=== PATIENT | female | born 1985 | race Caucasian/White ===

== ENCOUNTER → 2017-06-27 14:59 | Outpatient (CLI) | payer OTHER, SELFPAY ==
[2017-06-27 15:59] LABS: Absolute Lymphocyte Count 2.19 X10^3/ul (0.83-4.51); Absolute Neutrophil Count 5.6 X10^3/uL (2.0-7.7); Basophil# 0.03 X10^3/uL; Basophil% 0.3 % (0-1); Eosinophils% 1.2 % (0-5); Hematocrit 38.3 % (37-47); Hemoglobin 12.9 g/dl (12.0-15.0); Lymphocyte # 2.19 X10^3/ul (4.0); Lymphocyte % 25.2 % (19-41); Mean Corp Hgb Conc 33.7 g/gl (32-36); Mean Corpuscular Hgb 29.7 pg (27.0-32.0); Mean Corpuscular Volume 88.2 fL (81-99); Mean Platelet Vol. 9.1 fl (6.2-12.0); Monocyte% 9.2 % (0-10); Neutrophil # 5.55 X10^3/uL (2.7-7.7); POSITIVE COUNT NO; POSITIVE DIFFERENTIAL NO; POSITIVE MORPHOLOGY NO; Platelet Count 436 K/mm3 (150-450); RBC Distribution Width CV 12.3 % (11.6-14.6); Red Blood Count 4.34 M/mm3 (4.2-5.4); White Blood Count 8.7 K/mm3 (4.4-11.0)
[2017-06-27 16:21] LABS: Color, Urine Yellow (Yellow); Glucose, Dipstick Normal (Normal); Ketone-Dipstick Negative (Negative); Leukocyte Esterase-Dipstick Negative /ul (Negative); Nitrite-Dipstick Negative (Negative); Occult Blood-Urine Negative /ul (Negative); Protein-Dipstick Negative (Negative); Urine Bilirubin Dipstick Negative (Negative); Urine Clarity Clear (Clear); Urine Urobilinogen Normal (Normal); Urine pH 6.5 (5.0 - 8.0)
[2017-06-27 16:37] LABS: Thyroid Stim Hormone (TSH) 1.94 uIU/mL (0.358-3.74)
[2017-06-27 18:43] LABS: Chlamydia Trachomatis by PCR Negative (Negative); Neisserai gonorrhoeae by PCR Negative (Negative); Probe Check PASS; Sample Adequacy Control PASS; Specimen Processing Control PASS
[2017-06-28 01:10] LABS: Prenatal RPR NONREACTIVE (NONREACTIVE)
[2017-06-28 10:36] LABS: HIV - WCH Non-Reactive (Nonreactive); Rubella IgG > 500.0 IU/mL
[2017-06-29 11:13] LABS: HEPATITIS B SURFACE AG Negative (Negative); Hep C Antibodies <0.1 s/co ratio (0.0-0.9)
[2017-07-03 14:38] LABS: HPV Reflexed? NOT INDICATED
== END ==
PROVIDERS: Visit Provider Obstetrics & Gynecology
DX: Z12.4 Encounter for screening for malignant neoplasm of cervix (principal); Z11.3 Encounter for screening for infections with a predominantly sexual mode of transmission; Z32.01 Encounter for pregnancy test, result positive
CPT/HCPCS: 36415; 81002; 84443; 85025; 86703; 86762; 86803; 87340; 87491; 87591; 88175; G0145

== ENCOUNTER → 2017-11-13 11:13 | Outpatient (CLI) | payer OTHER, SELFPAY ==
[2017-11-13 13:42] LABS: Glucose Challenge Gest 1H 50g 99 mg/dL (70-140); Hematocrit 33.4 % (37-47); Hemoglobin 10.7 g/dl (12.0-15.0); Mean Corpuscular Hgb 29.1 pg (27.0-32.0); Mean Corpuscular Volume 90.8 fL (81-99); Mean Platelet Vol. 9.3 fl (6.2-12.0); Platelet Count 369 K/mm3 (150-450); RBC Distribution Width CV 12.6 % (11.6-14.6); RBC Distribution Width SD 41.5 fl (35.1-43.9); Red Blood Count 3.68 M/mm3 (4.2-5.4); White Blood Count 9.1 K/mm3 (4.4-11.0)
[2017-11-13 13:51] LABS: Scan Indicated on CBC? Y/N NO
== END ==
PROVIDERS: Visit Provider Obstetrics & Gynecology
DX: Z34.82 Encounter for supervision of other normal pregnancy, second trimester (principal)
CPT/HCPCS: 82950; 85027

== ENCOUNTER → 2018-01-15 09:32 | Outpatient (CLI) | payer OTHER, SELFPAY ==
[2018-01-15 12:14] LABS: Group B Strep DNA By PCR Negative (Negative); Internal Control PASS; Probe Check PASS; Specimen Processing Control PASS
== END ==
PROVIDERS: Visit Provider Obstetrics & Gynecology
DX: Z36.85 Encounter for antenatal screening for Streptococcus B (principal)
CPT/HCPCS: 87081; 87653

== ENCOUNTER 2018-02-21 02:58 | Inpatient (IN) | payer OTHER, SELFPAY ==
[2018-02-19] MEDS: Lactated Ringers 1,000 ML 50 ML IV (20:35)
[2018-02-19 20:50] LABS: Hematocrit 31.7 % (37-47); Hemoglobin 10.2 g/dl (12.0-15.0); Mean Corp Hgb Conc 32.2 g/gl (32-36); Mean Corpuscular Hgb 26.5 pg (27.0-32.0); Mean Corpuscular Volume 82.3 fL (81-99); Platelet Count 361 K/mm3 (150-450); RBC Distribution Width CV 14.3 % (11.6-14.6); Red Blood Count 3.85 M/mm3 (4.2-5.4); White Blood Count 9.9 K/mm3 (4.4-11.0)
[2018-02-19 20:51] LABS: Scan Indicated on CBC? Y/N NO
[2018-02-19 21:17] VITALS: BMI 30.9
[2018-02-19] MEDS: miSOPROStol 25 MCG TABLET PO (21:49)
[2018-02-20] MEDS: miSOPROStol 25 MCG TABLET PO ×2 (02:43→06:19)
[2018-02-20] MEDS: Lactated Ringers 1,000 ML 50 ML IV ×3 (10:00→21:56)
[2018-02-20] MEDS: Oxytocin 30 units/NS 500 ml 30 UNITS/500 ML IV.SOLN IV (10:25)
[2018-02-20] MEDS: Ondansetron 4 MG/2 ML Vial IV (14:10)
--- NOTE | 2018-02-20 18:15 | PCM.PN.BLA ---
Progress Note LABOR PROGRESS NOTE Comfortable with epidural and no complaints. AVSS GEN - NAD, AAO x 3 SVE //-2 per RN exam at approx 1715h TOCO 3/10 min FHR 130, moderate variability, + accelerations, no decelerations. A/P: 32yo G1 @ 41 1/7wga, IOL in active labor, Cat I FHR -Maternal and statuses reassuring -Continue in labor
[2018-02-20] MEDS: Acetaminophen 325 MG Tablet PO (21:50)
[2018-02-21] VITALS (25 sets, daily range): BP systolic 86–117; BP diastolic 42–61; PULSE 72–111; RESP 12–18; TEMP 36.3–37.9; O2SAT 94–97
[2018-02-21] MEDS: Acetaminophen 325 MG Tablet PO (01:29)
--- NOTE | 2018-02-21 02:46 | PCM.PN.BLA ---
Progress Note LABOR PROGRESS SUMMARY Patient FD/+2 station on my arrival with head at pubic bone. Patient reported some fatigue after 3 hours of pushing. I pushed with patient for approximately 15 minutes, there was good maternal effort with no sustained descent. Bedside US performed to confirm positioning in JOYCE. FHR Cat II with baseline 135, moderate variability, + accelerations with variable decelerations. I discussed vacuum assistance with review of maternal and risks, benefits including risk for failure with need for section. Also offered section was an alternative with review of risks including pain, bleeding/hemorrhage, infection, injury to surrounding structure including but not limited to bowel/bladder/ureter, scarring, VTE, need for further surgery and reviewed recovery time. Following discussion, patient and spouse opted for vacuum. The vacuum was placed at the flexion point and 500mmHg suction applied at 0228h. The patient continued pushing over 4 contractions during 10 minutes with 4 pulls and no pop offs with no sustained descent of the head. I subsequently released the suction and reviewed with patient and lack of descent as sufficient indication for section given anticipated size of baby and 3 hours pushing. Patient and agreed to proceed. ELIGIBILITY CONSULTANT notified.
[2018-02-21] MEDS: Sodium Citrate/Citric Acid 30 ML UDC PO (03:07)
--- NOTE | 2018-02-21 03:30 | PLAC_PTH ---
PATIENT: IRIS SALES LOC: [facility] U#:[id number] AGE/SX: 32/F ROOM: [facility] RE02/21/[address]: Dr. Darryl Obrien MD : 1985 BED: 1 DIS: 02/23/2018 SPEC #: [id number] RECD: 02/21/18 06:22 STATUS: LING SANAM #: [id number] KHADRA: 02/21/18 03:[address]: Darryl Obrien DEPT: SURGICAL PATHOLOGY RECD BY: Ryan Padgett ENTERED: 02/21/18 11:55 SP TYPE: PLACENTA OTHR DR: No Primary Care Phys Tissues: Placenta, NOS Procedures: Surgery Specimen Level V HEADER OPERATION: Caesarean section PRE-OP DIAGNOSIS: Labor, infection, meconium TISSUE SUBMITTED: Placenta MICROSCOPIC DIAGNOSIS Wren placenta (545 gm): Umbilical cord - trivascular with focal acute funisitis. Placental membranes - acute chorioamnionitis and acute deciduitis. Placental disc - organizing intraparenchymal hemorrhage, intravillous and intervillous congestion and mild chronic deciduitis. AM:rommel 02/25/18 MICROSCOPIC DESCRIPTION Slides are reviewed. GROSS DESCRIPTION SPECIMEN: PLACENTA / CLINICAL INFORMATION: A. Weight: 3.248 kg B. Gestational Age: 41 weeks C. Sex: Male PLACENTAL WEIGHT (POST FIXATION): 545 gm PLACENTAL DIMENSIONS: 20 x 18 x 3 cm PLACENTAL SHAPE: Usual ovoid PLACENTAL WEIGHT FOR GESTATIONAL AGE: Within 10-99th percentile MEMBRANES - Present A. Insertion: The membrane is inserted 1 to 2 cm away from the margin. B. Site of rupture from edge: Distance of rupture cannot be assessed due to the fragmented nature of the membranes. C. Color of membrane: The membranes are fragmented, fernandez, mucoidy and greenish. D. Abnormalities: None UMBILICAL CORD - Present A. Color: Fernandez-lopez B. Insertion: Paracentral C. Length: 25 cm D. Diameter: 1.2 cm E. Number of vessels: Three F. Abnormalities: None PLACENTAL DISC - Present A. Color of surface: Fernandez-lopez B. surface abnormalities: None C. Maternal cotyledons: Intact with minimal tears. D. Attached retro placental clot: No clot E. Cut surface: Dark red and spongy F. Lesions: The maternal surface shows a plaque-like area measuring 1 cm in greatest dimension. Sections reveal a fernandez, indurated area predominantly occupying the maternal surface measuring 2 x 2 x 1 cm. G. Separate clot: Absent SECTIONS SUBMITTED: 1. Membrane roll 2. Cord, maternal end, insertion of membrane away from the margin 3. Cord, end, smaller plaque-like area on maternal surface 4. Placental disc, and maternal surfaces, larger lesion 5. Placental disc, and maternal surfaces 6. Placental disc, and maternal surfaces SJ:rg 02/24/18 TC:2 CPT: 51776
[2018-02-21] MEDS: Oxytocin 30 units/NS 500 ml 30 UNITS/500 ML IV.SOLN 167 UNITS IV (03:34)
--- NOTE | 2018-02-21 04:19 | PCM.OB.CSR ---
- Problem List (1) 41 weeks gestation of Status: Acute (2) Maternal fever during labor, delivered Status: Acute (3) Failed vacuum extraction delivery Status: Acute (4) delivery delivered Status: Acute Delivery Classification: JESÚS Final CAMRON: 02/12/18 Gestational age: 41 Weeks and 2 Days doctor who attended delivery (if requested by OB): Jazz Rachel Indications: 32-year-old 1 admitted for late-term induction of labor. She progressed to fully dilated. She pushed over 3 hours to +2 station. At this time she opted to proceed with an attempted vacuum extraction which was unsuccessful. She is advised to proceed with section and counseled regarding the risks, benefits, and indications. Informed consent was obtained. Indications for : Arrrest of Descent Description of Procedure: The patient was taken to the operating room and spinal analgesia was administered. She is placed in a dorsal supine position with left lateral tilt. The perineum and abdomen were prepped and draped in sterile fashion. And the spinal was found to be adequate. A Pfannenstiel incision was made using a scalpel and brought down to incise the subcutaneous tissue and rectus fascia at the midline. Subcutaneous tissue was bluntly dissected off the fascia laterally. The fascial incision was dissected laterally and cephalad using curved Crowley scissors. The superior leaflet of the rectus fascia was grasped using Randi clamps and bluntly dissected and sharply dissected from the underlying rectus muscle. In a similar fashion the inferior rectus fascia was dissected from the underlying muscle. The rectus muscles were bluntly at the midline. The peritoneum was identified and entered [sharply]. The bladder blade was placed into the abdomen and the vesicouterine peritoneal fold identified. The fold was incised and a bladder flap created. Bladder blade was then repositioned to the abdomen. A low transverse hysterotomy was made using the [Metzenbaum scissors] to level of the membranes. The hysterotomy was extended bluntly cephalad and caudad. The membranes were then ruptured revealing clear fluid. The head was elevated and brought to the level of the hysterotomy and the delivered revealing vigorous [male] . The cord was doubly clamped and cut after 30 seconds. The was passed to awaiting [nursery personnel]. The placenta was [expressed] from the uterus and appeared intact on inspection. The uterus was cleared of debris. The hysterotomy was then repaired using 0 Vicryl running lock suture. A second imbricating layer was also placed for additional hemostasis. The bladder blade was removed. The anterior cul-de-sac was cleared of debris. The peritoneum and rectus muscles were reapproximated using 2-0 Vicryl running suture. The rectus fascia was closed using 0 strata fix running suture. The subcutaneous tissue was reapproximated using 2-0 Vicryl. The skin was closed using 4-0 Monocryl subcuticularly. 10 cc of 1% lidocaine was injected locally for additional analgesia. A Mepilex occlusive dressing was placed over the incision. The fundus was firm. The patient was then transferred to the recovery room without complication. Sponge, instrument, and needle counts were correct ?2. Amniotic Membrane Rupture Type: Artificial Amniotic Fluid Description: Thick meconium Placenta Disposition: Sent to Pathology Drain: Mendoza to straight drain Cord Entanglement: None Nuchal Cord Compression: Without compression Esitmated Blood Loss (ml): 1000 Gender: Male (1 minute): 8 (5 minute): 9 Delayed cord clamping: Yes Pre-op Antibiotic Given: - - Clindamycin 900mg IV x 1, Gentamicin 5mg/kg IV x 1 Pt instructed on risks of surgery: Bleeding, Anesthesia Risks, Infection, Need for Future C-Sections, Injury to surrounding structure(s) including bowel and bladder Complications: None - Admit VTE Documentation VTE Present on Admission: No VTE Mechan Device Prophylaxis: SCD's VTE Pharm Prophylaxis ordered?: No
--- NOTE | 2018-02-21 04:28 | DCINST_ITS ---
Discharge Diet: No Restrictions Discharge Activity: Return to Normal Activity, May not drive while taking narcotic pain medications., May Shower May resume sexual activity in: 6 weeks Lifting Restrictions: 10 lb Call your doctor if your incision/area has: Continuous Slow Oozing, Sudden Increased Bleeding, Increased Pain/ Swelling, Increased Redness Call your doctor if you observe: Fever of 101 or Higher, Inability to urinate, Inability to have a bowel movement, Using more than one pad per hour, Shortness of breath, Chest pain, Calf discomfort, Uncontrolled pain Suture Line Care: Avoid Pulling/Pushing Cleanse incision/area with: Soap & Water Additional Instructions: If you experience any of the following, contact your healthcare provider. * Bleeding that soaks a pad every hour for 2 hours * Fever 100.4 or higher * Unrelieved incision or abdominal pain * Swelling, redness, discharge or bleeding from your incision or episiotomy site * Your incision begins to separate * Problems urinating (including inability to urinate or burning while urinating). * Visual changes * Severe headache * Flu-like symptoms * Pain or redness in one of both of your breasts * Pain, warmth, tenderness or swelling in your legs, especially the calf area * Frequent nausea and vomiting * Symptoms of depression or anxiety If you experience any of the following, call 911 or go to the nearest Emergency Room. * Chest pain * Problems breathing * Seizure activity * Partial or complete paralysis of a body part, slurred speech, weakness or drooping of the face, or a sudden inability to walk or hold your balance Allergies/Adverse Reactions: Allergies No Known Allergies Allergy (Verified 02/19/18 21:16) Medications to take at Discharge Prenatabs FA 1 tab PO DAILY 02/19/18 Docusate Sodium [Colace] 100 mg PO BID PRN PRN #60 cap 02/21/18 Ibuprofen 800 mg PO TID PRN #30 tab 02/21/18 Oxycodone [Oxyir] 5 mg PO Q6H PRN PRN 5 Days #20 tab 02/21/18 The following prescriptions were given: Oxycodone [Oxyir] 5 mg PO Q6H PRN PRN 5 Days #20 tab PRN Reason: Severe Pain (-01/29) Docusate Sodium [Colace] 100 mg PO BID PRN PRN #60 cap PRN Reason: Constipation Ibuprofen 800 mg PO TID PRN #30 tab PRN Reason: Pain Follow-Up: Call to make an appointment with your doctor for an incision check in 1-2 weeks. You will also need a 6 week post- follow up appointment. Test results from this visit will be discussed in further detail at your follow- up appointment, if applicable. Please Follow Up With: Darryl Obrien MD - incision check When: 1-2 weeks Please Follow Up With: Darryl Obrien MD - visit When: 6 weeks Primary Care Physician: Care Physician,No Primary [Primary Care Provider] -
[2018-02-21] MEDS: Lactated Ringers 1,000 ML 100 ML IV (05:45)
[2018-02-21] MEDS: Ketorolac 30 MG/ML Syringe IV ×3 (09:45→21:50)
[2018-02-21] MEDS: 0.9% Saline Lock 10 ML Syringe IV ×2 (20:59→21:50)
[2018-02-22 03:00] VITALS: PULSE 86; RESP 18; O2SAT 97
[2018-02-22 03:59] VITALS: BP 96/59; PULSE 99; RESP 18; TEMP 36.6; O2SAT 94
[2018-02-22] MEDS: 0.9% Saline Lock 10 ML Syringe IV ×4 (04:11→21:01)
[2018-02-22] MEDS: Ketorolac 30 MG/ML Syringe IV ×4 (04:11→21:01)
[2018-02-22 06:15] LABS: Hematocrit 29.4 % (37-47); Hemoglobin 9.3 g/dl (12.0-15.0); Mean Corp Hgb Conc 31.6 g/gl (32-36); Mean Corpuscular Hgb 25.8 pg (27.0-32.0); Mean Corpuscular Volume 81.7 fL (81-99); Mean Platelet Vol. 9.7 fl (6.2-12.0); Platelet Count 342 K/mm3 (150-450); RBC Distribution Width CV 14.8 % (11.6-14.6); RBC Distribution Width SD 43.5 fl (35.1-43.9); White Blood Count 18.4 K/mm3 (4.4-11.0)
[2018-02-22 06:16] LABS: Scan Indicated on CBC? Y/N NO
[2018-02-22 08:15] VITALS: BP 105/62; PULSE 81; RESP 16; TEMP 36.8; O2SAT 97
--- NOTE | 2018-02-22 09:14 | PN.OBGYN_ITS ---
Patient Problems: Active and Suspected Problems 41 weeks gestation of (Acute) Maternal fever during labor, delivered (Acute) Failed vacuum extraction delivery (Acute) delivery delivered (Acute) Subjective: POD#1 C Section for CPD Doing well. Breast feeding, but baby and she are learning. Using abdominal bi nder and likes this. Up to shower already. Asking if incision/ dressing looks oK. - Physical Exam General: Alert, Oriented x3, Cooperative, No apparent distress HEENT: Atraumatic Neck: Supple Abdomen: Soft - tender consistent with postop status. Fundus firm and at approx 2 cm inferior to umbilicus Skin: Incision - Mepilex dressing CDI with one spont of shadow drainage midportion of incision, approx 1 cm or less. Neurological: Cranial nerves II-XII grossly intact Psych/Mental Status: Normal Affect Vital Signs Temp Pulse Resp BP Pulse Ox 98.2 F 81 16 105/62 97 02/22/18 08:15 02/22/18 08:15 02/22/18 08:15 02/22/18 08:15 02/22/18 08:15 Oxygen Delivery Method Room Air Weight: 79.288 kg Body Mass Index (BMI) 30.9 Intake and Output for Last 24 Hours 02/20/18 02/21/18 02/22/18 23:59 23:59 23:59 Intake Total 3827 / 3827 Output Total 6100 / 6100 2700 / 2700 Balance -2273 / -2273 -2700 / -2700 Laboratory Tests Past 24 Hrs 02/22/18 06:00 WBC 18.4 H RBC 3.60 L Hgb 9.3 L Hct 29.4 L MCV 81.7 MCH 25.8 L MCHC 31.6 L RDW 14.8 H RDW Differential 43.5 Plt Count 342 MPV 9.7 Medical Necessity - Tobacco Use Smoking Status: Never smoker Assessment/Plan All Active Problems 41 weeks gestation of (Acute) Maternal fever during labor, delivered (Acute) Failed vacuum extraction delivery (Acute) delivery delivered (Acute) POD#1 C section for CPD Stable postop. Continue care. Diet and activity to increase as tolerated. Mendoza removed for voiding trial. Begin po meds. SL IV for continued Toradol today. Leukocytosis. Fevers in labor. AVSS now. Continue IS, encouraged C and DB. Ambulation Repeat CBC tomorrow to recheck WBCs suspect reactive change due to labor, C/S Preoperative iron deficiency anemia. With superimposed acute blood loss anemia. Ferrous sulfate bid Repeat CBC in am 02/23/18
[2018-02-22] MEDS: Senna/Docusate Sodium 1 Tablet PO (09:32)
[2018-02-22] MEDS: Ferrous Sulfate 325 MG Tablet PO ×2 (12:17→17:43)
[2018-02-22 15:00] VITALS: BP 103/56; PULSE 94; RESP 16; TEMP 36.9; O2SAT 95
[2018-02-22] MEDS: Acetaminophen 500 MG Tablet 1000 MG PO (17:47)
[2018-02-22 19:58] VITALS: BP 112/66; PULSE 102; RESP 18; TEMP 36.7; O2SAT 95
[2018-02-23 00:46] VITALS: BP 112/66; PULSE 86; RESP 18; TEMP 36.6; O2SAT 98
[2018-02-23] MEDS: 0.9% Saline Lock 10 ML Syringe IV (02:13)
[2018-02-23] MEDS: Ketorolac 30 MG/ML Syringe IV (02:13)
[2018-02-23 05:24] LABS: Hematocrit 27.2 % (37-47); Hemoglobin 8.5 g/dl (12.0-15.0); Mean Corp Hgb Conc 31.3 g/gl (32-36); Mean Corpuscular Hgb 25.6 pg (27.0-32.0); Mean Corpuscular Volume 81.9 fL (81-99); Mean Platelet Vol. 9.5 fl (6.2-12.0); Platelet Count 346 K/mm3 (150-450); RBC Distribution Width CV 14.9 % (11.6-14.6); RBC Distribution Width SD 44.4 fl (35.1-43.9); Red Blood Count 3.32 M/mm3 (4.2-5.4); White Blood Count 15.5 K/mm3 (4.4-11.0)
[2018-02-23 05:29] LABS: Scan Indicated on CBC? Y/N NO
--- NOTE | 2018-02-23 08:00 | PCM.PN.OB ---
Patient Problems: Active and Suspected Problems 41 weeks gestation of (Acute) Maternal fever during labor, delivered (Acute) Failed vacuum extraction delivery (Acute) delivery delivered (Acute) Subjective: POD#2 Primary C/S CPD Tearful this am. Admits fatigue. Really wants to go home. Has asked any and all questions re care she could think of and states feels confident she will do ok. States baby is latching on well and nursing, milk not in yet. Tearful at present as thinks she may not be going home today. S.O. at bedside and supportive. - Physical Exam General: Alert, Oriented x3, Cooperative HEENT: Atraumatic, EOMI Abdomen: Soft, Non Tender - Abdominal binder in place Fundus firm NT at 1-2 cm inferior to umbilicus Skin: Incision - Mepliex CDI. Neurological: Cranial nerves II-XII grossly intact Psych/Mental Status: Appropriate Vital Signs Temp Pulse Resp BP Pulse Ox 98 F 86 18 112/66 98 02/23/18 00:46 02/23/18 00:46 02/23/18 00:46 02/23/18 00:46 02/23/18 00:46 Oxygen Delivery Method Room Air Weight: 79.288 kg Body Mass Index (BMI) 30.9 Intake and Output for Last 24 Hours 02/21/18 02/22/18 02/23/18 23:59 23:59 22:59 Intake Total 3827 / 3827 Output Total 6100 / 6100 3300 / 3300 Balance -2273 / -2273 -3300 / -3300 Laboratory Tests Past 24 Hrs 02/23/18 05:02 WBC 15.5 H RBC 3.32 L Hgb 8.5 L Hct 27.2 L MCV 81.9 MCH 25.6 L MCHC 31.3 L RDW 14.9 H RDW Differential 44.4 H Plt Count 346 MPV 9.5 Medical Necessity - Tobacco Use Smoking Status: Never smoker Assessment/Plan All Active Problems 41 weeks gestation of (Acute) Maternal fever during labor, delivered (Acute) Failed vacuum extraction delivery (Acute) delivery delivered (Acute) POD#2 C section for CPD Stable postop. Taking minimal pain med, using abdominal binder. Declines RX for OxyIR. D/C saline lock today. Leukocytosis. Fevers in labor. Remains AFEB. WBCs decreasing on recheck. Preoperative iron deficiency anemia. With superimposed acute blood loss anemia. Further drift noted in Hgb/Hct but VSS. Ferrous sulfate bid for one mo D/C home today if remains stable, per pt request. Will need to schedule 2 wk postop check with Dr. Darryl Obrien.
--- NOTE | 2018-02-23 08:09 | PCM.DC.SUM ---
Discharge Date and Diagnosis - Problem List Patient Problems: Active and Suspected Problems 41 weeks gestation of (Acute) Maternal fever during labor, delivered (Acute) Failed vacuum extraction delivery (Acute) delivery delivered (Acute) Date of Admission: 02/19/18 Date of Discharge: 02/23/18 - Primary Discharge Diagnosis Active and Suspected Problems 41 weeks gestation of (Acute) Maternal fever during labor, delivered (Acute) Failed vacuum extraction delivery (Acute) delivery delivered (Acute) Hospital Course and Treatment Operations: - - induction of labor postdates, primary C section for CPD. Failure to descend Summary of Care Provided: The patient is a 32-year-old 1 admitted for postdates induction of labor. She progressed to fully dilated with fevers noted in labor. She pushed over 3 hours to +2 station. At this time she opted to proceed with an attempted vacuum extraction which was unsuccessful. She is advised to proceed with section C section delivery performed early AM on 02/21/18 Findings included normal pelvic anatomy, and a davies viable male. Procedure uncomplicated. Iron deficiency anemia noted preoperatively , now with superimposed acute blood loss anemia. Hgb 10.2 g/dl preop, now decreased to 8.5 g/dl by POD#2 Patient remains afebrile with a benign exam. Nursing well, with multiple questions. Elects discharge to home on POD#2. Declines RX for narcotic pain medication and plans to use Ibuprofen and Tylenol prn for pain. RTO in 2 wk for postop incision check, and in 6 wk for routine checkup. Patient Problems: Active and Suspected Problems 41 weeks gestation of (Acute) Maternal fever during labor, delivered (Acute) Failed vacuum extraction delivery (Acute) delivery delivered (Acute) - Physical Exam Vital Signs Temp Pulse Resp BP Pulse Ox 98 F 86 18 112/66 98 02/23/18 00:46 02/23/18 00:46 02/23/18 00:46 02/23/18 00:46 02/23/18 00:46 Oxygen Delivery Method Room Air Weight: 79.288 kg Body Mass Index (BMI) 30.9 Intake and Output for Last 24 Hours 02/21/18 02/22/18 02/23/18 23:59 23:59 22:59 Intake Total 3827 / 3827 Output Total 6100 / 6100 3300 / 3300 Balance -2273 / -2273 -3300 / -3300 Laboratory Tests Past 24 Hrs 02/23/18 05:02 WBC 15.5 H RBC 3.32 L Hgb 8.5 L Hct 27.2 L MCV 81.9 MCH 25.6 L MCHC 31.3 L RDW 14.9 H RDW Differential 44.4 H Plt Count 346 MPV 9.5 Discharge Diet: No Restrictions Discharge Activity: Return to Normal Activity, May not drive while taking narcotic pain medications., May Shower May resume sexual activity in: 6 weeks Call your doctor if your incision/area has: Continuous Slow Oozing, Sudden Increased Bleeding, Increased Pain/ Swelling, Increased Redness Call your doctor if you observe: Fever of 101 or Higher, Inability to urinate, Inability to have a bowel movement, Using more than one pad per hour, Shortness of breath, Chest pain, Calf discomfort, Uncontrolled pain Suture Line Care: Avoid Pulling/Pushing Cleanse incision/area with: Soap & Water Home Medications: Medications to take at Discharge Prenatabs FA 1 tab PO DAILY 02/19/18 Docusate Sodium [Colace] 100 mg PO BID PRN PRN #60 cap 02/21/18 Ibuprofen 800 mg PO TID PRN #30 tab 02/21/18 Oxycodone [Oxyir] 5 mg PO Q6H PRN PRN 5 Days #20 tab 02/21/18 Ferrous Sulfate 325 mg PO BIDCM #60 tab 02/22/18 Following Prescrptions Were Given to Patient: Oxycodone [Oxyir] 5 mg PO Q6H PRN PRN 5 Days #20 tab PRN Reason: Severe Pain (-01/29) Docusate Sodium [Colace] 100 mg PO BID PRN PRN #60 cap PRN Reason: Constipation Ferrous Sulfate 325 mg PO BIDCM #60 tab Ibuprofen 800 mg PO TID PRN #30 tab PRN Reason: Pain Primary Care Physician: Care Physician,No Primary [Primary Care Provider] - Please Follow Up With: Darryl Obrien MD - incision check When: 1-2 weeks Please Follow Up With: Darryl Obrien MD - visit When: 6 weeks Medical Necessity - Tobacco Use Smoking Status: Never smoker Meaningful Use Info Meaningful Use Diagnoses (Choose all that apply): None applicable
[2018-02-23 09:25] VITALS: BP 117/67; PULSE 91; RESP 16; TEMP 36.9; O2SAT 98
[2018-02-23] MEDS: Ibuprofen 600 MG Tablet PO (09:50)
[2018-02-23] MEDS: Ferrous Sulfate 325 MG Tablet PO (09:50)
[2018-02-23 14:00] VITALS: BP 108/62; PULSE 107; RESP 20; TEMP 36.9; O2SAT 97
[2018-02-27 14:34] LABS: Pathology Specimen OB SEE PATHOLOGY REPORT
== END 2018-02-23 14:00 | disposition home or self-care (01) | DRG 787 ==
PROVIDERS: Obstetrics & Gynecology; Admitting Provider Obstetrics & Gynecology; Visit Provider Obstetrics & Gynecology
DX: O65.4 Obstructed labor due to fetopelvic disproportion, unspecified (principal); O75.2 Pyrexia during labor, not elsewhere classified; D62 Acute posthemorrhagic anemia; O99.13 Other diseases of the blood and blood-forming organs and certain disorders involving the immune mechanism complicating the puerperium; O66.5 Attempted application of vacuum extractor and forceps; O32.4XX0 Maternal care for high head at term, not applicable or unspecified; O77.0 Labor and delivery complicated by meconium in amniotic fluid; O48.0 Post-term pregnancy; O99.03 Anemia complicating the puerperium; D72.829 Elevated white blood cell count, unspecified; O40.2XX0 Polyhydramnios, second trimester, not applicable or unspecified; Z3A.41 41 weeks gestation of pregnancy; Z37.0 Single live birth
CPT/HCPCS: 59025; 59050; 85027; 86850; 86900; 88307; 99218; J7120; A4216; G0378; J2405

== ENCOUNTER 2018-02-26 12:45 | Outpatient (CLI) | payer OTHER, SELFPAY | END 2018-02-26 13:45 | disposition home or self-care (01) | LOC: WPOUT 12:46 → WP 12:47 | PROVIDERS: Referring Provider Obstetrics & Gynecology; Visit Provider Obstetrics & Gynecology | DX: Z39.1 Encounter for care and examination of lactating mother (principal) | CPT/HCPCS: 96152 ==

== ENCOUNTER 2018-03-20 13:27 | Outpatient (CLI) | payer OTHER, SELFPAY | END 2018-03-20 14:30 | disposition home or self-care (01) | LOC: WPOUT 13:29 → WP 13:30 | PROVIDERS: Referring Provider Obstetrics & Gynecology; Visit Provider Obstetrics & Gynecology | DX: Z39.1 Encounter for care and examination of lactating mother (principal) | CPT/HCPCS: 96152 ==

== ENCOUNTER → 2019-03-31 14:15 | Outpatient (CLI) | payer OTHER, SELFPAY ==
[2019-04-01 14:27] LABS: Chlamydia Trachomatis by PCR Negative (Negative); Neisserai gonorrhoeae by PCR Negative (Negative); Probe Check PASS; Sample Adequacy Control PASS; Specimen Processing Control PASS
== END ==
PROVIDERS: Visit Provider Obstetrics & Gynecology
DX: Z11.3 Encounter for screening for infections with a predominantly sexual mode of transmission (principal)
CPT/HCPCS: 87491; 87591

== ENCOUNTER 2019-04-24 13:50 | Day surgery (SDC) | payer OTHER, SELFPAY ==
[2019-04-24] VITALS (7 sets, daily range): BP systolic 84–112; BP diastolic 33–64; PULSE 74–78; RESP 16; TEMP 36.5–36.6; O2SAT 94–100; BMI 27.5
--- NOTE | 2019-04-24 08:43 | HP.PCM_ITS ---
- Problem List (1) Missed Status: Acute History and Physical Date of Admission: 04/24/19 Surgical History and Physical Date: 04/24/2019 Name: MARIIA BECKER Age: 33 Date of : 1985 Mariia Becker, a 33 year old female 1 0 0 0 1, presents for suction D and C on April 24, 2019 at 4:00. -- Mariia was seen in the office yesterday and US showed a fetus measuring 8w5d with no heart rate. MEDICATIONS HISTORY: ALLERGIES: Anesthesia, Vomitting, Amide Type Anesthetics and Vomiting Infections - Chicken pox and Pneumonia Illnesses - asthma Accidents - None Hospitalizations - Childbirth Review of Systems: GENERAL - fatigue SKIN - Denies skin changes EYES - Denies visual changes EARS - Denies difficulty hearing NOSE - Denies nasal congestion or bleeding MOUTH - Denies sore throat or difficulty swallowing NECK - Denies pain or swelling RESPIRATORY - Denies shortness of breath or wheezing CARDIOVASCULAR - Denies palpitations or chest pain GASTROINTESTINAL - slight nausea GENITOURINARY - Denies dysuria, frequency of urination, incontinence of urine MUSCULOSKELETAL - Denies joint or muscle pain NEUROLOGICAL - Denies localized numbness or weakness PSYCHIATRIC - emotional ENDOCRINE - Denies heat or cold intolerance, weight loss or gain HEMATO-IMMUNOLOGIC - Denies excesive bleeding with cuts SOCIAL HISTORY: Alcohol Use - RARELY Smoking - used to smoke but quit and 2004 Diet - no special diet Lifestyle - moderate stress lifestyle Exercise - none Seat Belt Use - always 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 Paternal Grandmother: Colon Cancer. MENSTRUAL HISTORY: LMP Known?- DefiniteAmount/Duration - 6 days, Regularity - Regular, Frequency - monthly days, LMP - 02/14/19, Age Onset Menarche - 11 PAST PREGNANCIES: Total Pregnancies - 2; Full Term Pregnancies - 1; Premature - 0; Abortions, Induced - 0; Abortions, Spontaneous - 0; Ectopics - 0; Multiple Births - 0; Living Children - 1 SURGICAL HISTORY: 1. wisdom teeth extraction ; - 2. 02/21/2018 ; Summer Tate Palencia MD - PHYSICAL EXAM BP- 99/64 Sitting, Left arm, regular cuff Weight- 155.46013 lbs Height- 63 inch BMI:27.60 CONSTITUTIONAL - NAD, well nourished, and well developed NEUROLOGICAL - Cranial nerves II-XII grossly intact PSYCHIATRIC - A and O to time, place, person, mood and affect External Genitial Vagina - non-tender without lesions Urethra/Urethral Meatus - non-tender Bladder - non-tender Vagina - vaginal gallardo are pink and moist without loss of rugae and no evidence of atropy Cervix - without cervical motion tenderness and has normal size and features without evident lesions Uterus - multiparous size 6 cm & wt 75-125 g Adnexa - clear without massess or tenderness Pap - deferred and GC/Chlamydia cultures done ASSESSMENT/PLAN: 1. Inevitable MIscarriage Plan to proceed with suction dilation and curettage. Sign consents at time of surgery. CBC, T&S
[2019-04-24 14:22] LABS: Hematocrit 41.9 % (37-47); Mean Corp Hgb Conc 33.4 g/dL (32-36); Mean Corpuscular Hgb 29.2 pg (27.0-32.0); Mean Corpuscular Volume 87.5 fL (81-99); Mean Platelet Vol. 8.7 fl (6.2-12.0); Platelet Count 409 K/mm3 (150-450); RBC Distribution Width CV 12.4 % (11.6-14.6); RBC Distribution Width SD 39.6 fl (35.1-43.9); Red Blood Count 4.79 M/mm3 (4.2-5.4); White Blood Count 9.7 K/mm3 (4.4-11.0)
[2019-04-24] MEDS: Lactated Ringers 1,000 ML 100 ML IV (14:59)
--- NOTE | 2019-04-24 16:00 | POC_PTH ---
PATIENT: IRIS SALES [place] [facility] [place][id number] AGE/SX: 33/F ROOM: RE04/24/[address]: Dr. Ashlye Palencia MD : 1985 BED: DIS: 04/24/2019 SPEC #: [id number] RECD: 04/27/19 09:56 STATUS: LING ROYEugenia #: [id number] KHADRA: 04/24/19 16:[address]: Ashley Bey DEPT: SURGICAL PATHOLOGY RECD BY: Alonso Perez ENTERED: 04/27/19 13:20 SP TYPE: PROD CONC OTHR DR: Dr. aMrcel Garcia MD Tissues: Product of conception, NOS Procedures: Surgery Specimen Level IV HEADER OPERATION: Suction dilation and curettage PRE-OP DIAGNOSIS: Inevitable miscarriage TISSUE SUBMITTED: Products of conception MICROSCOPIC DIAGNOSIS Products of conception: [place]id[place], gestational endometrium and immature chorionic villi (products of conception). SJ:rommel 04/28/19 MICROSCOPIC DESCRIPTION Slides are reviewed. GROSS DESCRIPTION Received in fixative is one container labeled with the patient's name and designated products of conception. The specimen consists of multiple irregular fragments of dark to light cason soft tissue that in aggregate measure 11 x 11 x 1.5 cm. parts are not grossly recognized. Food Safety Manager portions are submitted in one cassette. / AM:rommel 04/27/19 TC:5 CPT: 23380
[2019-04-24] MEDS: miSOPROStol 200 MCG Tablet (16:47)
--- NOTE | 2019-04-24 16:53 | PCM.OPRPT ---
Problem List (1) Missed Status: Acute Report of Operation Date of Procedure: 04/24/19 Pre-Operative Diagnosis: Missed Post-Operative Diagnosis: Missed Surgery/Procedure Performed:: Suction dilation and curettage Description of Surgical Findings:: Non living intrauterine measuring 8w5d Type of Anesthesia:: IV Sedation, Local Anesthesiologist: Vipul Reyes Specimen's removed: products of conception Estimated Blood Loss (mL): 20 Fluids Replaced: 400 ml Description of Procedure: Patient was brought to the operating room and sinus performed. She is placed in the dorsal supine position and induced under MAC. She is repositioned to dorsolithotomy and examination under anesthesia was performed. A bedside ultrasound was performed confirming intrauterine demise. The perineum was prepped and draped in sterile fashion. A bivalve speculum space into the vagina cervix grasped the anterior cervical lip using a single-tooth tenaculum. A paracervical block was placed for a total of 20 cc of 1% lidocaine. The cervix was subsequently dilated and her sound guided suction curettage performed using 9 mm curved curette. This was followed by sharp curettage. Bedside ultrasound demonstrated no evidence of retained products of conception with a thin endometrium. 800 mcg of rectal Cytotec was administered. The procedure was complete. The tenaculum is removed from the cervix. The tenaculum site was hemostatic. Speculum is removed from the vagina and the patient was placed into dorsal supine position, awakened and transferred to the recovery room without complication. Sponge counts were correct x2. Patient tolerated the procedure well. - Complications None - Admit VTE Documentation VTE Present on Admission: No VTE Mechan Device Prophylaxis: SCD's VTE Pharm Prophylaxis ordered?: No
--- NOTE | 2019-04-24 17:05 | DCINST_ITS ---
Discharge Diet: No Restrictions Discharge Activity: Return to Normal Activity, May Shower, - - No tub bath for 2 weeks May resume sexual activity in: 4 weeks Call your doctor if you observe: Fever of 101 or Higher, Inability to urinate, Inability to have a bowel movement, Using more than one pad per hour, Shortness of breath, Chest pain, Calf discomfort, Uncontrolled pain Allergies/Adverse Reactions: Allergies No Known Allergies Allergy (Verified 04/24/19 14:21) Medications to take at Discharge Prenatabs FA 1 tab PO DAILY 02/19/18 Ibuprofen 600 mg PO TID PRN #30 tab 04/24/19 Oxycodone [Oxyir] 5 mg PO Q6H PRN PRN 3 Days #5 tab 04/24/19 The following prescriptions were given: Ibuprofen 600 mg PO TID PRN #30 tab PRN Reason: Pain Score 1-10/10 Transmission Status: Pending to [facility]- [place], [place] Oxycodone [Oxyir] 5 mg PO Q6H PRN PRN 3 Days #5 tab PRN Reason: severe pain Prescription Printed Primary Care Physician: Marcel Garcia MD [Primary Care Provider] - Test Results: Test results from this visit will be discussed in further detail at your follow- up appointment, if applicable. Please Follow Up With: Darryl Obrien MD When: 2 weeks
== END 2019-04-24 18:23 | disposition home or self-care (01) ==
LOC: SDC 13:52 → AC 13:54
PROVIDERS: Family Provider Family Medicine; PCP Family Medicine; Referring Provider Obstetrics & Gynecology; Visit Provider Obstetrics & Gynecology
PROC: (CPT 59812; principal; 2019-04-24 15:45)
DX: O02.89 Other abnormal products of conception (principal); Z87.891 Personal history of nicotine dependence
CPT/HCPCS: 01965; 59812; 85027; 86850; 86900; 86901; 88305; J7120; J2405

== ENCOUNTER → 2019-07-30 | Outpatient (CLI) | payer OTHER, SELFPAY ==
[2019-04-24 14:30] VITALS: BMI 27.5
[2019-07-30 21:39] LABS: Chlamydia Trachomatis by PCR Negative (Negative); Neisserai gonorrhoeae by PCR Negative (Negative); Probe Check PASS; Sample Adequacy Control PASS; Specimen Processing Control PASS
[2019-08-04 12:48] LABS: HPV Reflexed? NOT INDICATED
== END | disposition home or self-care (01) ==
PROVIDERS: PCP Family Medicine; Referring Provider Obstetrics & Gynecology; Visit Provider Obstetrics & Gynecology
DX: Z12.4 Encounter for screening for malignant neoplasm of cervix (principal); Z11.3 Encounter for screening for infections with a predominantly sexual mode of transmission
CPT/HCPCS: 87491; 87591; 88175; G0145

== ENCOUNTER → 2020-02-24 10:20 | Outpatient (CLI) | payer OTHER, SELFPAY ==
[2019-04-24 14:30] VITALS: BMI 27.5
== END ==
PROVIDERS: PCP Family Medicine; Referring Provider Obstetrics & Gynecology; Visit Provider Obstetrics & Gynecology
DX: Z34.83 Encounter for supervision of other normal pregnancy, third trimester (principal); Z20.828 Contact with and (suspected) exposure to other viral communicable diseases
CPT/HCPCS: 87635; C9803; U0003

== ENCOUNTER 2020-02-29 09:40 | Inpatient (IN) | payer OTHER, SELFPAY ==
[2019-04-24 14:30] VITALS: BMI 27.5
--- NOTE | 2020-02-28 22:18 | PCM.HP.BLA ---
History and Physical Date of Admission: 02/29/20 AC ANTEPARTUM RECORD - HISTORY AND PHYSICAL (02/28/2020) Name: MARIIA SALES History of This : This is a 34-year-old Ab1 who presents for repeat . She is 39 weeks 2 days gestation. care has otherwise been uneventful. OB Physician: ANA Woolford's Physician: PED FINISHER CARD TENDER ...................................................................... : 1985 Age: 34 Address: [address] [place] [address] Phone: (H) [phone] (O) [phone] Insurance Carrier: [employer] [id number] Emergency Contact: REEMA SALES/ [phone] ...................................................................... Final CAMRON: 03/05/20 By Ultrasound: 8 weeks 5 days PARITY: (G-Total Pregnancies P-Fullterm,Premature,Induced AB,Spont AB, Ectopics, Multiple,Living) CAMRON CONFIRMATION: By LMP: 05/30/19 Final CAMRON: 03/05/20 OB PROBLEM LIST: AMA- declines screening Declines MSAFP-CF Hx of Asthma reported Needs to complete NOB papwork! 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 Drug Use - denies use of street drugs Sexual Activity - Spouse-Sig Other Name - Reema Sales Spouse-Sig Other Occupation - [employer] -- Director of [employer] Children Name(s) - Noah PRIOR DELIVERY HISTORY DEL DATE GEST LAB WT LB WT OZ TYPE ANES LABOR TX Mar 09 40 32 7 13 C-Sec Epidural No May 11 10 0 0 0 Sab General No ANTEPARTUM FLOW CHART VISIT GE RTC FU F F GA U U DATE WK MD WKS HT PN HR M SS BP ED WT GA GL D EF ST __ ____ ___ __ __ ___ __ __ __ ___ __ __ __ ___ __ Feb JMW 1 37 + + 110/70 sl 184 tr - Jan JMW 1 37 V + + 118/80 sl 184 - - Jan JMW 2 34 + + 108/50 sl 182 - - Dec JMW 2 32 + + 104/60 sl 178 tr - Jan 18 JMW 3 29 + + 112/62 sl 178 - - Dec 14 JMW 3 25 + + 118/58 tr 174 tr - Nov 09 CH 4 21 V + + 110/64 sl 170 - - September 01 JMW 6 U+ US 118/64 0 164 - - Mar 26 JMW 1 ? O 116/68 0 158 - - ANTEPARTUM NOTE(S): Feb 23 2020: Doing well, preop paper reviewed and kelli Feb 16 2020: LARC today Jan 26 2020: joint pain, indigestion Jan 12 2020: see note, Good FM Dec 22 2019: see progress note, One Hr PG today Nov 24 2019: Glucola/Instructions Given,Good FM,Feeling Well Oct 26 2019: feeling well. Sep 01 2019: Doing Well, Labs today Apr 07 2019: Doing Well, ?off on dates COMPREHENSIVE ANTEPARTUM NOTE(S): Jan 12 2020: Mariia is being seen for PNV. 32 weeks and 3 days. Pt is feeling well. She complains of swelling the last couple weeks in ankles. She notices more when she is sitting throughout the day. Reviewed drinking plenty of fluids and wearing compression stockings. AM Dec 22 2019: Mariia presents for her PNV. She is reporting +FM. Intermittent sl swelling in her lower extremities worse in the evening after standing for several hrs. Pt also c/o achiness in her feet, and more pelvic pressrue/hip and pelvic floor achiness much more noted than in first . Advised this is not unusual to have more noted discomforts after first pregnancies. JT Oct 26 2019: Anatomy US today reveals female fetus, AGA at 22% EFW with, FHR 152. Discussion on covid-19 precautions with , covid testing, edema in hands, carpal tunnel symptoms, sciatic nerve pain and headaches. Reviewed hydration in depth r/t a lot of her symptoms. To return in 4 weeks for routine PNV. - CH Sep 22 2019: Mariia presents here today for UTI check with the Nurse. 33 y.o. G 3 P 1 non-smoker with T- 98.6 oral today in our Office and Wt. 166 Reports that she has had several days of feeling fatigued and periodic shortness of breath and had same symptoms when she had a UTI several weeks ago and was treated with an antibiotic and felt better, and now symptoms have returned. Urine Dip: Protein - trace, pH - 6.0, Sp Gr - 1.010, Ketones - small+ and all others Negative. I reviewed s/s of dehydration and she admits she has not been drinking well lately and will work harder at doing a better job. I also mentioned that if symptoms continue or worsen she might want to consider having a covid 19 test through her PCP. Her next PNV is in October, and advised to call with up-date next week and we can bring her in sooner if needed. Admitted she has a periodic headache and denies palpitations at this time. JON Aug 03 2019: Telehealth NOB completed Mraiia is AB1. She had a early SAB 05/11. Early u/s that confirmed viable IUP with missed menses. She is feeling ok, some nausea noted but this is not terrible. We discussed use of B6, Unisom, seabands, Pepcid. Questions use of Omeprazole. Advised that I would start with the Pepcid for help with increased acid that may in turn help with the nausea. She can use Omeprazole if fails on Pepcid. States she had to use this last time for heartburn. Small, frequent meals encouraged with sips of fluids as tolerated. Salty carb's often help in early . Better diet can be added as she feels better. Relates last was failed induction. She does relate that she discussed with Dr Benton and this was not recommended for her and plans R C/S. Discussed AMA diagnosis and options. Offered MSAFP, cfDNA testing, referral to genetic counselor, MARIAH. At this time she is not interested in any of this testing. She may consider if there are any abnormalities noted. She does report a history of asthma but has not needed inhaler for a long time and does not even have one now. Recommend following Covid-19 quarantine instructions to avoid this respiratory virus. She does have to do the shopping at this time. Reviewed history of single abnormal pap in 2009 with +HPV but no further abnormal pap's. about that time. She is asking about HPV? Is it a reported STD? Is it an STD? Advised not reportable but is sexually transmitted. Most likely her body has cleared that strain of HPV and hopefully will not have to deal with this again. Encouraged healthy diet with lean meats, complex carb's, leafy greens, and approx 3 servings of fruit daily. Increased po fluids as tolerated. Aim for at least 30 minutes of exercise 5x/wk. Will need to sign NOB paperwork and labs to be done at next in office visit. LMT ++++++++++NEW ++++++++++ Jul 30 2019: Mariia presents here today for Missed Menses appointment. 33 y.o. G 3 P 1 previous smoker(quit in 2003) with regular menses and LMP of 05-30-19 with confirmed with US today due to previous Missed AB and feeling anxious. Presents at 8 weeks 5 days with an approximate CAMRON of 11-14-20. Plans repeat at [facility] with last in 2018. Reports having all day slight nausea and tender breasts. Currently taking an OTC Vitamin with Educational Materials given. Medication and Allergy lists up-dated. History of normal pap screenings from 2007 through 06/2017. JON Jul 30 2019: ok May 08 2019: Mariia is her for post op for D done 04/24/19. She is still having slight spotting. States mood has been a bit unsteady, but state she has other stressful factors going on right now too. Is planning to attempt again. May 08 2019: Doing well. Return 3-4 months for annual exam or sooner for MM visit. Apr 23 2019: No FHTs noted on u/s today; 9 week IUP without FHTs. Mar 31 2019: ok Mar 31 2019: Mariia presents here today for Missed Menses appointment. 33 y.o. G 2 P 1 previous smoker(quit in 2003) with regular menses x 2 months and LMP of 10-26-19 lasting her average of 6 days. UPT is positive today in our Office and presents at 6 weeks 3 days with an approximate CAMRON of 11-21-20. Denies spotting/bleeding thus far with slight nausea and fatigue daily. History of all normal pap screenings since 2007 with last in 2018. Medication and Allergy lists up-dated and currently taking an OTC Vitamin. Educational Materials given. JON REVIEW OF SYSTEMS: GENERAL - Denies fever, or chills SKIN - Denies rash, new skin lesions, or change in moles EYES - Denies blurred vision, or change in visual acuity EARS - Denies ear pain, or difficulty hearing NOSE - Denies nasal congestion, discharge, or bleeding MOUTH - Denies sore throat, or difficulty swallowing NECK - Denies pain or swelling RESPIRATORY - Denies shortness of breath, cough, wheezing CARDIOVASCULAR - Denies palpitations, chest pain, orthopnea, PND, peripheral edema, syncope or claudication GASTROINTESTINAL - Denies nausea, vomiting, diarrhea, constipation, Denies abdominal pain, melena and or bright red blood GENITOURINARY - Denies dysuria, frequency of urination, urgency, or hesitancy MUSCULOSKELETAL - Denies joint or muscle pain, or back pain NEUROLOGICAL - Denies localized numbness, weakness, or tingling PSYCHIATRIC - Denies depression, anxiety, substance abuse or suicide attempts ENDOCRINE - Denies heat or cold intolerance, weight loss or gain, increasing thirst HEMATO-IMMUNOLOGIC - Denies easy bruising, bleeding, oral ulcerations or recurrent infections GENETICS SCREENING: Age 35+ years: Yes Thalassemia: No Neural Tube Defect: No Down Syndrome: No LOREN-SACHS: No Sickle Cell Disease: No Hemophilia: No Musc. Dystrophy: No Cystic Fibrosis: No-declines screening Chaves Chorea: No Mental Retardation: No Fragile X: No Other genetic: No Other defects: No SABs/still births: Yes x1 Drugs since LMP: No INFECTION HISTORY: High risk AIDS: No High risk Hepatitis: No Exposed to TB: No Exposed to Herpes: No Rash/viral illness since LMP: No History of STD: No MENSTRUAL HISTORY: *Menses Amount/Duration: 6 daysMenses Regularity: RegularFrequency: monthlyMenarche (Age Onset): 11* PAST SUMMARY: PARITY: 1. Total Pregnancies............ 3 2. Full Term Pregnancies........ 1 3. Premature.................... 0 4. Abortions - Induced.......... 0 5. Abortions - Spontaneous...... 1 6. Ectopics..................... 0 7. Multiple Births.............. 0 8. Living Children.............. 1 PAST #1: Date of :.................. 02/21/18 Gestation Weeks:................ 40 Length of labor(hours):......... 32 Sex:............................ M Weight-lbs:............... 7 Weight-oz:................ 13 Type of Delivery:............... C-Sect Type of Anesthesia:............. Epidural Place of Delivery:.............. Jr Treatment of Labor?:.... No Comment: MECONIUM PAST #2: Date of :.................. 04/24/19 Gestation Weeks:................ 10 Length of labor(hours):......... 0 Sex:............................ Weight-lbs:............... 0 Weight-oz:................ 0 Type of Delivery:............... Sab Type of Anesthesia:............. General Place of Delivery:.............. Jr Treatment of Labor?:.... No Comment: NO PROBLEMS PHYSICAL EXAMINATION General Appearence: 34 yo female in no acute distress Vital Signs: AF, VSS Heart: RRR without rubs or gallops Lungs: CTA x 2 Breasts: deferred Abdomen: gravid Pelvis: Cervix: Presentation: cephalic Station: Fetus: Size: AGA Movement: present Heart: present Labs for : MARIIA SALES since 06/09/2019 ORDER DATEIN DESCRIPTION VALUE UNITS RANGE A+ COMMENT COVID 19, KATHIE SENDOUT 02/24/20 NOTE Original Ordering Provider: Mj Benton COVID-19,KATHIE Not Detected Not Detected This nucleic acid amplification test was developed and its performance characteristics determined by [facility]. Nucleic acid amplification tests include PCR and TMA. This test has not been FDA cleared or approved. This test has been authorized by FDA under an Emergency Use Authorization (EUA). This test is only authorized for the duration of time the declaration that circumstances exist justifying the authorization of the emergency use of in vitro diagnostic tests for detection of SARS-CoV-2 virus and/or diagnosis of COVID-19 infection under section 564(b)(1) of the Act, 21 U.S.C. 360bbb-3(b) (1), unless the authorization is terminated or revoked sooner. When diagnostic testing is negative, the possibility of a false negative result should be considered in the context of a patient's recent exposures and the presence of clinical signs and symptoms consistent with COVID-19. An individual without symptoms of COVID-19 and who is not shedding SARS-CoV-2 virus would expect to have a negative (not detected) result in this assay. GLUCOSE CHALLENGE 50GM 1 HOUR 12/22/19 NOTE Original Ordering Provider: MJ BENTON GLUCOSE CHALLENGE 50GM 1 HOUR GLUCOSE CHALLENGE 50 GMS 1 HOUR GLUCOSE 1HR 118 mg/dl 70 - 140 Reviewed by MJ CBC + DIFF 12/22/19 NOTE Original Ordering Provider: JIMI CHETAN CBC + DIFF CBC-COMPLETE BLOOD COUNT WBC 10.2 x 10EE3/UL 4.5 - 10.8 RBC 3.38 x 10EE6/UL 4.10 - 5.30 L HEMOGLOBIN 9.5 g/dl 12.0 - 16.0 L HEMATOCRIT 28.2 % 34.0 - 46.0 L MCV 84 fl 80 - 99 MCH 28 pg 27 - 33 MCHC 34 X10 3 32 - 36 RDW/CV 13.6 % 12.0 - 15.6 PLATELET 422 x10EE3/UL 150 - 450 MPV 7.5 fl 6.6 - 10.5 AUTOMATED DIFFERENTIAL NEUT % 77.6 % 46.0 - 76.0 H LYMPH % 15.0 % 20.0 - 45.0 L MONOS % 6.2 % 0.0 - 10.0 EO % 1.0 % 0.0 - 7.0 BASO % 0.2 % 0.0 - 2.0 LYMPH # 1.50 x10EE3/UL 0.80 - 2.80 NEUT # 7.90 x10EE3/UL 1.50 - 7.10 H MONO # 0.60 x10EE3/UL 0.20 - 1.00 EO # 0.10 x10EE3/UL 0.00 - 0.50 BASO # 0.00 x10EE3/UL 0.00 - 0.10 MANUAL DIFF N/A MORPHOLOGY N/A Reviewed by MJ HEPATITIS C AB IA [CCL] 09/01/19 NOTE Original Ordering Provider: MJ BENTON HEPATITIS C AB IA Negative NEGAT [facility] [employer] [address] [place] [address] Jose Phillips III, M.D. [id number] Reviewed by MJ OVIEDO 3 [CCL] 09/01/19 NOTE Original Ordering Provider: MJ BENTON RPR Non Reactive NR HEPATITIS B SURF. AG Negative NEGAT RUBELLA IGG AB, QUAL Positive NEGAT A Sample is considered positive for IgG antibodies to rubella virus. A positive result indicates previous exposure to Rubella virus or vaccination. RUBELLA IGG AB 18.60 Indexlue Index values are interpreted as follows: Negative specimens <0.90 Equivocol specimens 0.90 to 0.99 Positive specimens >0.99 The magnitude of the measured result is not indicative of the amount of antibody present. [facility] [address] [place] [address] Jose Phillips III, M.D. [id number] Reviewed by MJ HERNANDEZ TYPE 09/01/19 NOTE Original Ordering Provider: MJ HERNANDEZ TYPE TYPE, Rh, AND SCREEN ABO O RH POS ANTIBODY SCR negative Reviewed by MJ URINALYSIS 09/01/19 NOTE Original Ordering Provider: MJ BENTON URINALYSIS URINALYSIS SPECIMEN TYPE Clean catch COLOR yellow NORMAL: YELLOW CLARITY very cloudy NORMAL: CLEAR PH 6 NORMAL: 5.0-8.0 PROTEIN NEG NORMAL: NEGATIVE GLUCOSE NORM NORMAL: NORMAL KETONE NEG NORMAL: NEGATIVE BILIRUBIN NEG NORMAL: NEGATIVE BLOOD 25 NORMAL: NEGATIVE A UROBILINOG NORM NORMAL: NORMAL SP GRAVITY 1.025 NORMAL: 1.010-1.030 NITRITE NEG NORMAL: NEGATIVE LEUKOCYTES NEG NORMAL: NEGATIVE MICROSCOPIC SEE BELOW MICROSCOPIC WBC RARE 0-5/hpf RBC 0-5 0-3/hpf CASTS NONE CRYSTALS NONE AMORPHOUS NONE BACTERIA 4+ EPI CELLS OCC MUCOUS NONE YEAST NONE Reviewed by MJ TSH 09/01/19 NOTE Original Ordering Provider: MJ BENTON TSH 1.35 uIU/ml 0.34 - 5.60 Reviewed by MJ CBC + DIFF 09/01/19 NOTE Original Ordering Provider: MJ BENTON CBC + DIFF CBC-COMPLETE BLOOD COUNT WBC 9.8 x 10EE3/UL 4.5 - 10.8 RBC 4.14 x 10EE6/UL 4.10 - 5.30 HEMOGLOBIN 12.5 g/dl 12.0 - 16.0 HEMATOCRIT 36.2 % 34.0 - 46.0 MCV 88 fl 80 - 99 MCH 30 pg 27 - 33 MCHC 35 X10 3 32 - 36 RDW/CV 13.1 % 12.0 - 15.6 PLATELET 452 x10EE3/UL 150 - 450 H MPV 7.5 fl 6.6 - 10.5 AUTOMATED DIFFERENTIAL NEUT % 72.0 % 46.0 - 76.0 LYMPH % 21.2 % 20.0 - 45.0 MONOS % 5.9 % 0.0 - 10.0 EO % 0.7 % 0.0 - 7.0 BASO % 0.2 % 0.0 - 2.0 LYMPH # 2.10 x10EE3/UL 0.80 - 2.80 NEUT # 7.00 x10EE3/UL 1.50 - 7.10 MONO # 0.60 x10EE3/UL 0.20 - 1.00 EO # 0.10 x10EE3/UL 0.00 - 0.50 BASO # 0.00 x10EE3/UL 0.00 - 0.10 MANUAL DIFF N/A MORPHOLOGY N/A Reviewed by MJ Initial OB Labs 09/01/19 HIV Test negative (Scanned) Negative Reviewed by MJ PAP IG W/REFLEX HR HPV APTIMA 07/30/19 NOTE Original Ordering Provider: Mj Benton DIAGN . NEGATIVE FOR INTRAEPITHELIAL LESION OR MALIGNANCY. ADEQ . Satisfactory for evaluation. Endocervical and/or squamous metaplastic cells (endocervical component) are present. PERFORM . In[employer] Dishwasher (ASCP) TEST METHOD . This liquid based ThinPrep(R) pap test was screened with the use of an image guided system. COMM . . PAPSMR . The Pap smear is a screening test designed to aid in the detection of premalignant and malignant conditions of the uterine cervix. It is not a diagnostic procedure and should not be used as the sole means of detecting cervical cancer. Both false-positive and false-negative reports do occur. HPV RFLX . The HPV DNA reflex criteria were not met with this specimen result therefore, no HPV testing was performed. Performed at: [address], [place] [id number] Erector Operator: Praveena Issa MD, Phone: [phone] Reviewed by JOSE CT[facility] BY PCR 07/30/19 NOTE Original Ordering Provider: Mj Benton [facility] PCR Negative Negative NG BY PCR Negative Negative Reviewed by JOSE Impression /Plan: 39+ week intrauterine for repeat section. Preparations in progress for delivery.
[2020-02-29] VITALS (15 sets, daily range): BP systolic 96–126; BP diastolic 45–71; PULSE 71–107; RESP 16–18; TEMP 36.3–37.1; O2SAT 93–99; BMI 33.1
[2020-02-29] MEDS: Lactated Ringers 1,000 ML 999 ML IV (10:20)
[2020-02-29 10:37] LABS: Absolute Lymphocyte Count 1.48 X10^3/uL (0.83-4.51); Absolute Neutrophil Count 6.5 X10^3/uL (2.0-7.7); Basophil# 0.02 X10^3/uL; Basophil% 0.2 % (0-1); Eosinophil# 0.05 X10^3/uL; Eosinophils% 0.6 % (0-5); Hematocrit 39.3 % (37-47); Hemoglobin 12.7 g/dL (12.0-15.0); Lymphocyte # 1.48 X10^3/ul (4.0); Mean Corp Hgb Conc 32.3 g/dL (32-36); Mean Corpuscular Hgb 28.9 pg (27.0-32.0); Mean Corpuscular Volume 89.3 fL (81-99); Mean Platelet Vol. 9.6 fl (6.2-12.0); Monocyte# 0.58 X10^3/uL; Monocyte% 6.6 % (0-10); NRBC Flagged by Analyzer 0 % (0-5); Neutrophil # 6.54 X10^3/uL (2.7-7.7); Neutrophil % 74.9 % (47-70); Platelet Count 297 K/mm3 (150-450); RBC Distribution Width SD 58.6 fl (35.1-43.9); White Blood Count 8.7 K/mm3 (4.4-11.0)
[2020-02-29] MEDS: Lactated Ringers 1,000 ML 150 ML IV (11:29)
[2020-02-29] MEDS: Sodium Citrate/Citric Acid 30 ML UDC PO (12:45)
[2020-02-29] MEDS: Acetaminophen 500 MG Tablet 1000 MG PO ×2 (12:45→19:04)
[2020-02-29] MEDS: Cefazolin 2 GM in 0.9% Normal Saline 100 ML IV (12:58)
--- NOTE | 2020-02-29 13:09 | OP.PCM_ITS ---
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 Cord was around the neck x1 loose Indication: This is a 34-year-old who presents for her second at 39+ weeks gestation. care has otherwise been uneventful. The patient has been counseled regarding the risk and indications of this procedure including the possibility of bleeding infection and injury to surrounding structures such as bowel bladder. All questions were answered. Procedure: Patient was taken to the operating room where after spinal anesthesia was placed, the patient was prepped and draped in usual sterile fashion and a Mendoza catheter was placed. The abdomen was entered through the patient's prior Pfannenstiel incision and peritoneum was entered bluntly. After developing a bladder flap on the lower uterine segment a low transverse incision was made on the uterus and head was easily delivered onto the operative field the nose mouth and oropharynx were bulb suctioned. Subsequently a viable female was born with Apgars of 8/9. The infant was noted to cry move all extremities vigorously on the operative field. The umbilical cord was doubly clamped and ligated and infant handed to the nursery personnel who were present for the delivery. Placenta was delivered and noted to be 3 vessels and normal. Uterus was exteriorized and remaining placental tissue was removed. The uterus was then closed in 2 layers first with running locked 0 Vicryl suture followed by a second imbricating layer with 0 Vicryl suture. 0 Vicryl suture was then used in a horizontal mattress interrupted fashion to affect final hemostasis of the uterine incision line. Normal fallopian tubes and ovaries were visualized and the uterus was returned to the pelvis. Hemostasis was noted and rectus abdominis muscles were reapproximated in the midline with interrupted Number 0 Vicryl suture in a horizontal mattress fashion. Fascia was closed with running Number 1 PDS Strata fix suture. Subcutaneous tissue was irrigated with copious amounts of saline solution and then closed with running 3-0 Vicryl suture. Skin was closed with 4-0 monocryl suture in a running subcuticular fashion. Steri strips and a Mepilex dressing were placed across the incision. The patient tolerated the procedure well and was taken to the recovery room in satisfactory condition. Sponge, needle, and instrument counts were all reportedly correct. EBL was less than 500 cc. Ancef 2 gms IV was given prior to the procedure. Spicemen to Pathology: None Complications: None Amniotic Fluid Description: Clear Placenta Disposition: [facility] Specimen(s) sent to pathology: None Drain: Mendoza to straight drain Cord Entanglement: None Cord Vessel Description: 3 Vessels Esitmated Blood Loss (ml): 500 cc Infant Gender: Female (1 minute): 8 (5 minute): 9 Antibiotic Given: Ancef 2 grams IV x1 Pt instructed on risks of surgery: Bleeding, Anesthesia Risks, Injury to surrounding structure(s) including bowel and bladder Complications: None - Admit VTE Documentation VTE Present on Admission: Yes VTE Mechan Device Prophylaxis: SCD's
--- NOTE | 2020-02-29 13:11 | PCM.DCCSEC ---
Discharge Diet: No Restrictions Discharge Activity: May not drive while taking narcotic pain medications., May Shower, May Take a Tub Bath May resume sexual activity in: 4-6 weeks Lifting Restrictions: 20 pounds Additional Activity Instructions:: Nothing in the vagina for 4-6 weeks. You may return to work/school in 6 weeks. Call your doctor if your incision/area has: Continuous Slow Oozing, Sudden Increased Bleeding, Increased Pain/ Swelling, Increased Redness, Foul Smelling Discharge Call your doctor if you observe: Fever of 101 or Higher, Inability to urinate, Inability to have a bowel movement, Using more than one pad per hour Additional Instructions: If you experience any of the following, contact your healthcare provider. Bleeding that soaks a pad every hour for 2 hours Fever 100.4 or higher Unrelieved incision or abdominal pain Swelling, redness, discharge or bleeding from your incision or episiotomy site Your incision begins to separate Problems urinating (including inability to urinate or burning while urinating). Visual changes Severe headache Flu-like symptoms Pain or redness in one of both of your breasts Pain, warmth, tenderness or swelling in your legs, especially the calf area Frequent nausea and vomiting Symptoms of depression or anxiety If you experience any of the following, call 911 or go to the nearest Emergency Room. Chest pain Problems breathing Seizure activity Partial or complete paralysis of a body part, slurred speech, weakness or drooping of the face, or a sudden inability to walk or hold your balance Allergies/Adverse Reactions: Allergies No Known Allergies Allergy (Verified 02/29/20 10:07) Medications to take at Discharge Prenatabs FA 1 tab PO DAILY 02/19/18 Docusate Sodium [Colace] 100 mg PO BID PRN PRN #60 cap 02/29/20 Ferrous Sulfate 325 mg PO TID 02/29/20 Oxycodone [Oxyir] 5 mg PO Q6H PRN PRN 7 Days #20 tablet 02/29/20 The following prescriptions were given: Docusate Sodium [Colace] 100 mg PO BID PRN PRN #60 cap PRN Reason: Constipation Transmission Status: Pending to [facility] Oxycodone [Oxyir] 5 mg PO Q6H PRN PRN 7 Days #20 tablet PRN Reason: Pain Score 6-10 Transmission Status: Sent to [facility] Follow-Up: Call to make an appointment with your doctor for an incision check in 1-2 weeks. You will also need a 6 week post- follow up appointment. Test results from this visit will be discussed in further detail at your follow-up appointment, if applicable. Please Follow Up With: Darryl Obrien MD - [phone] When: Call to make an appointment for an incision check in 2 weeks. Primary Care Physician: Marcel Garcia MD [Primary Care Provider] -
[2020-02-29] MEDS: Oxytocin 30 units/NS 500 ml 30 UNITS/500 ML IV.SOLN 167 UNITS IV (14:13)
[2020-02-29] MEDS: Lactated Ringers 1,000 ML 100 ML IV (17:31)
--- NOTE | 2020-02-29 18:55 | NURSING ---
1845: Small blister noted on left nipple; encouraged ensuring good latch, pt verbalized understanding of proper latch.
--- NOTE | 2020-02-29 18:58 | NURSING ---
At 1845: small blister noted on left nipple. Encouraged pt to ensure proper latch, pt verbalized understanding of proper latch.
[2020-02-29] MEDS: Ketorolac 30 MG/ML Syringe IV (19:04)
[2020-02-29] MEDS: 0.9% Saline Lock 10 ML Syringe IV (19:05)
[2020-02-29] MEDS: Cefazolin 1 GM/50 ML BAG IV (20:54)
--- NOTE | 2020-02-29 23:06 | NURSING ---
pt states feeling the urge to void; this RN to assist pt to bathroom to attempt to empty bladder
[2020-03-01 00:30] VITALS: PULSE 98; RESP 17; O2SAT 96
[2020-03-01] MEDS: Acetaminophen 500 MG Tablet 1000 MG PO ×3 (00:54→12:57)
[2020-03-01] MEDS: Ketorolac 30 MG/ML Syringe IV ×3 (00:54→12:57)
[2020-03-01] MEDS: 0.9% Saline Lock 10 ML Syringe IV ×4 (00:55→13:03)
[2020-03-01 01:58] VITALS: PULSE 94; RESP 17; O2SAT 96
--- NOTE | 2020-03-01 03:19 | NURSING ---
0310- Pt. verbalized urge to void. Assisted up to restroom. Pt. tried to void for about 10 minutes with no success. Expresses the urge is there and that it feels like I need to pee but can't. According to last straight cath time, pt. has until 0520 to void. Pt. encouraged to try spraying warm water over perineum with spencer-bottle to see if that helps her relax to void. Will continue to monitor.
[2020-03-01 03:30] VITALS: BP 105/50; PULSE 78; RESP 16; TEMP 36.7; O2SAT 97
[2020-03-01] MEDS: Cefazolin 1 GM/50 ML BAG IV (05:45)
[2020-03-01 05:49] LABS: Hematocrit 36.7 % (37-47); Hemoglobin 11.9 g/dL (12.0-15.0); Mean Corp Hgb Conc 32.4 g/dL (32-36); Mean Corpuscular Hgb 29.5 pg (27.0-32.0); Mean Corpuscular Volume 90.8 fL (81-99); Mean Platelet Vol. 9.4 fl (6.2-12.0); Platelet Count 260 K/mm3 (150-450); RBC Distribution Width SD 60.2 fl (35.1-43.9); Red Blood Count 4.04 M/mm3 (4.2-5.4); White Blood Count 8.9 K/mm3 (4.4-11.0)
--- NOTE | 2020-03-01 06:55 | PCM.PN.OB ---
Subjective: Patient without complaints. Tolerating diet well. Positive flatus. Still unable to void on own. Wants to go home later today if possible. Objective: Wound is clean, dry, intact. Good urine output. Hemoglobin okay. - Physical Exam Vitals/I&O's: Vital Signs Temp Pulse Resp BP Pulse Ox 98.1 F 78 16 105/50 L 97 03/01/20 03:30 03/01/20 03:30 03/01/20 03:30 03/01/20 03:30 03/01/20 03:30 Oxygen Delivery Method Room Air Weight: 187 lb 2.759 oz Body Mass Index (BMI) 33.1 Intake and Output for Last 24 Hours 02/28/20 02/29/20 03/01/20 23:59 23:59 23:59 Intake Total 5189.17 / 5189.17 50 / 50 Output Total 2225 / 2225 1475 / 1475 Balance 2964.17 / 2964.17 -1425 / -1425 Laboratory Results 02/29/20 10:20: WBC 8.7, RBC 4.40, Hgb 12.7, Hct 39.3, MCV 89.3, MCH 28.9, MCHC 32.3, RDW Std Deviation 58.6 H, RDW Coeff of Harley 18.0 H, Plt Count 297, MPV 9.6, Immature Gran % (Auto) 0.700, Neut % (Auto) 74.9 H, Lymph % (Auto) 17.0 L, Millard % (Auto) 6.6, Eos % (Auto) 0.6, Baso % (Auto) 0.2, Absolute Neuts (auto) 6.5, Absolute Lymphs (auto) 1.48, Nucleated RBC % 0 02/29/20 10:20: Blood Type O POSITIVE, Antibody Screen NEGATIVE 03/01/20 05:45: WBC 8.9, RBC 4.04 L, Hgb 11.9 L, Hct 36.7 L, MCV 90.8, MCH 29.5, MCHC 32.4, RDW Std Deviation 60.2 H, RDW Coeff of Harley 18.0 H, Plt Count 260, MPV 9.4 Current Medications Acetaminophen (Acetaminophen 500 Mg Tablet) 1,000 mg PO Q6H [facility] Last Admin: 03/01/20 00:54 Dose: 1,000 mg Documented by: Bisacodyl (Bisacodyl 10 Mg Suppository) 10 mg RECTAL UD PRN PRN Reason: If no BM Diphenhydramine HCl (Diphenhydramine 25 Mg Capsule) 25 mg PO Q6H PRN PRN PRN Reason: ITCHING Stop: 03/01/20 14:09 Hydrocortisone (Hydrocortisone 2.5% Crm) 1 applic TOPICAL TID PRN PRN; Protocol PRN Reason: Discomfort Lactated Ringer's () 1,000 mls @ 100 mls/hr IV .Q10H [facility] Last Admin: 02/29/20 23:38 Dose: Not Given Documented by: Ibuprofen (Ibuprofen 600 Mg Tablet) 600 mg PO Q6H [facility] Ketorolac Tromethamine (Ketorolac 30 Mg/Ml Syringe) 30 mg IV Q6H [facility] Stop: 03/01/20 13:01 Last Admin: 03/01/20 00:54 Dose: 30 mg Documented by: Methylergonovine Maleate (Methylergonovine 0.2 Mg/Ml Ampul) 0.2 mg IM X1 PRN PRN Reason: Uterine Atony Nalbuphine HCl (Nalbuphine 10 Mg/Ml Ampul) 5 mg IV Q3H PRN PRN PRN Reason: ITCHING Stop: 03/01/20 14:09 Naloxone HCl (Naloxone 0.4 Mg/Ml Syringe) 0.02 mg IV Q1M PRN PRN Reason: RR <10 and pt unresponsive Ondansetron HCl (Ondansetron 4 Mg/2 Ml Vial) 4 mg IV Q4H PRN PRN PRN Reason: Nausea Oxycodone HCl (Oxycodone 5 Mg Tablet) 5 - 10 mg PO Q4H PRN PRN PRN Reason: Pain Score 4-10 Prochlorperazine Edisylate (Prochlorperazine 10 Mg/2 Ml Vial) 10 mg IV Q6H PRN PRN PRN Reason: NAUSEA Senna/Docusate Sodium (Senna/Docusate Sodium 1 Tablet) 0 tablet PO DAILY [facility] Simethicone (Simethicone 80 Mg Tablet) 80 mg PO PCHS PRN PRN Reason: Indigestion/stomach pain Sodium Chloride (0.9% Saline Lock 10 Ml Syringe) 5 - 15 ml IV UD PRN PRN Reason: SALINE FLUSH Last Admin: 03/01/20 05:43 Dose: 10 ml Documented by: Medical Necessity - Tobacco Use Smoking Status: Never smoker Assessment/Plan All Active Problems 41 weeks gestation of (Acute) Maternal fever during labor, delivered (Acute) Failed vacuum extraction delivery (Acute) delivery delivered (Acute) Missed (Acute) Doing well postoperative day #1 status post repeat . Will release to home later today if able to void on own.
[2020-03-01 07:50] VITALS: BP 112/60; PULSE 79; RESP 16; TEMP 36.8; O2SAT 96
[2020-03-01] MEDS: Senna/Docusate Sodium 1 Tablet PO (09:49)
[2020-03-01 13:00] VITALS: BP 108/66; PULSE 89; RESP 16; TEMP 37.1
== END 2020-03-01 16:40 | disposition home or self-care (01) | DRG 788 ==
PROVIDERS: Admitting Provider Obstetrics & Gynecology; PCP Family Medicine; Referring Provider Obstetrics & Gynecology; Visit Provider Obstetrics & Gynecology
PROC: 10D00Z1 Extraction of Products of Conception, Low, Open Approach (ICD-10-PCS; CPT 59514; principal; 2020-02-29 12:30)
DX: O34.211 Maternal care for low transverse scar from previous cesarean delivery (principal); O69.81X0 Labor and delivery complicated by cord around neck, without compression, not applicable or unspecified; Z3A.39 39 weeks gestation of pregnancy; Z37.0 Single live birth; Z87.891 Personal history of nicotine dependence; Z87.59 Personal history of other complications of pregnancy, childbirth and the puerperium
CPT/HCPCS: 85025; 85027; 86850; 86900; 86901; 99218; J7120; A4216; G0378; J2405

== ENCOUNTER → 2021-04-11 | Outpatient (CLI) | payer OTHER, SELFPAY ==
[2021-04-13 04:06] LABS: Chlamydia By Nucleic Acid AMP Negative (Negative)
[2021-04-13 13:14] LABS: Gonococcus By Nucleic Acid AMP Negative (Negative)
== END | disposition home or self-care (01) ==
LOC: LABSPEC 11:29
PROVIDERS: PCP Family Medicine; Visit Provider Obstetrics & Gynecology
DX: Z34.80 Encounter for supervision of other normal pregnancy, unspecified trimester (principal)
CPT/HCPCS: 87491; 87591

== ENCOUNTER 2021-05-08 10:01 | Day surgery (SDC) | payer OTHER, MEDICAID, SELFPAY ==
--- NOTE | 2021-05-05 | POC_PTH ---
PATIENT: IRIS SALES [place] [facility] [id number] AGE/SX: 35/F ROOM: RE05/08/[address]: Dr. Darryl Obrien MD : [id number] BED: DIS: 05/08/2021 SPEC #: [id number] RECD: 05/08/21 11:55 STATUS: LING MARION #: [id number] KHADRA: 05/05/21 00:[address]: Darryl Obrien DEPT: SURGICAL PATHOLOGY RECD BY: Mitchel Russo ENTERED: 05/08/21 12:45 SP TYPE: PROD CONC OTHR DR: Dr. Marcel Garcia MD Tissues: Product of conception, NOS Procedures: Surgery Specimen Level IV HEADER OPERATION: Suction dilation and curettage PRE-OP DIAGNOSIS: Spontaneous TISSUE SUBMITTED: Products of conception MICROSCOPIC DIAGNOSIS Endometrium, curettage: Chorionic villi, decidualized stroma and trophoblastic cells consistent with products of conception. AM:rommel 05/09/2021 MICROSCOPIC DESCRIPTION Slides are reviewed. GROSS DESCRIPTION Received in fixative is one container labeled with the patient's name and designated products of conception. The specimen consists of multiple irregular fragments of pink soft tissue that in aggregate measure 8 x 8 x 2 cm. tissue is not identified. Offbearer tissue is submitted in two cassettes. / SJ:rommel 05/08/2021 TC:5 CPT: 63622
[2021-05-08] VITALS (8 sets, daily range): BP systolic 98–122; BP diastolic 55–70; PULSE 66–90; RESP 16–18; TEMP 36.1–36.9; O2SAT 94–100; BMI 26.9
--- NOTE | 2021-05-08 07:30 | PCM.HP.BLA ---
History and Physical Date of Admission: 05/08/21 Surgical History and Physical Mariia Becker, a 35 year old female 2 0 1 0 2, presents for Suction D and E on May 08, 2021. -- Inevitable Miscarriage -- U/S last week showed 9 week gestation with 7 week IUP twin gestation without FHTs. Wants to proceed with D and E. MEDICATIONS HISTORY: ALLERGIES: Anesthesia, Vomitting, Amide Type Anesthetics and Vomiting Infections - Chicken pox and Pneumonia Illnesses - asthma Accidents - None Hospitalizations - Childbirth Review of Systems: GENERAL - Denies fever, or chills SKIN - Denies skin changes EYES - Denies visual changes EARS - Denies difficulty hearing NOSE - Denies nasal congestion or bleeding MOUTH - Denies sore throat or difficulty swallowing NECK - Denies pain or swelling RESPIRATORY - Denies shortness of breath or wheezing CARDIOVASCULAR - Denies palpitations or chest pain GASTROINTESTINAL - Denies nausea, vomiting, diarrhea, constipation GENITOURINARY - Denies dysuria, frequency of urination, incontinence of urine MUSCULOSKELETAL - Denies joint or muscle pain NEUROLOGICAL - Denies localized numbness or weakness PSYCHIATRIC - Denies depression or anxiety ENDOCRINE - Denies heat or cold intolerance, weight loss or gain HEMATO-IMMUNOLOGIC - Denies excesive bleeding with cuts SOCIAL HISTORY: Alcohol Use - RARELY Smoking - used to smoke but quit and 2004 Diet - no special diet Lifestyle - moderate stress lifestyle Exercise - none Seat Belt Use - always 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 Paternal Grandmother: Colon Cancer. MENSTRUAL HISTORY: LMP Known?- ApproximateAmount/Duration - normal amount, Regularity - Regular, Frequency - monthly days, LMP - 02/18/21, Age Onset Menarche - 11 PAST PREGNANCIES: Total Pregnancies - 4; Full Term Pregnancies - 2; Premature - 0; Abortions, Induced - 0; Abortions, Spontaneous - 1; Ectopics - 0; Multiple Births - 0; Living Children - 2 SURGICAL HISTORY: 1. wisdom teeth extraction 2. 02/21/2018 ; Ashley Palencia MD 3. 04/24/2019 suction D and C ; Ashley Palencia MD 4. 02/29/2020 ; Darryl Obrien M.D. PHYSICAL EXAM BP- 124/68 Sitting, Right arm, regular cuff Weight- 146.04653 lbs Height- 63 inch BMI:25.9 CONSTITUTIONAL - NAD, well nourished, and well developed SKIN - No rash, lesions, or ulcers HEENT - Normocephalic, PERRLA, EOMI NECK - No nodes, no nuchal rigidity and thyroid normal size and texture LYMPH NODES - Palpation of lymph nodes in neck and groins within normal limits LUNGS - CTA x2 without wheezes, crackles or rales CARDIAC - Regular rate and rhythm without rubs, murmurs, or gallops ABDOMEN - Without hepatosplenomegaly, distention, masses, rebound, or guarding; normal bowel sounds; no hernias EXTREMITIES - No edema or calf tenderness NEUROLOGICAL - Cranial nerves II-XII grossly intact PSYCHIATRIC - A and O to time, place, person, mood and affect External Genitial Vagina - non-tender without lesions Urethra/Urethral Meatus - non-tender Bladder - non-tender Vagina - vaginal gallardo are pink and moist without loss of rugae and no evidence of atropy Cervix - without cervical motion tenderness and has normal size and features without evident lesions Uterus - enlarged uterus 8 wks, wt 125-150 g Adnexa - clear without massess or tenderness ASSESSMENT/PLAN: 1. Spon Abort [employer] 9 week gestation with 7 week IUP twin gestation without FHTs. Discussed options including expectant management vs proceeding with Suction D and E. Desires the surgery. Discussed RBAs and all questions answered.
[2021-05-08] MEDS: Lactated Ringers 1,000 ML 15 ML IV (10:32)
[2021-05-08 10:41] LABS: Hematocrit 41.6 % (37-47); Hemoglobin 13.5 g/dL (12.0-15.0); Mean Corp Hgb Conc 32.5 g/dL (32-36); Mean Corpuscular Hgb 29.2 pg (27.0-32.0); Mean Corpuscular Volume 89.8 fL (81-99); Mean Platelet Vol. 8.6 fl (6.2-12.0); Platelet Count 399 K/mm3 (150-450); RBC Distribution Width CV 12.9 % (11.6-14.6); RBC Distribution Width SD 42.6 fl (35.1-43.9); Red Blood Count 4.63 M/mm3 (4.2-5.4); White Blood Count 8.5 K/mm3 (4.4-11.0)
--- NOTE | 2021-05-08 10:46 | PCM.OPRPT ---
Report of Operation Date of Procedure: 05/08/21 Pre-Operative Diagnosis: Inevitable Miscarriage, Twins Post-Operative Diagnosis: Inevitable Miscarriage, Twins Surgery/Procedure Performed:: Suction Dilation and Evacuation Description of Surgical Findings:: 14 cm endometrial cavity with products of conception present. Surgeon: Darryl Obrien Type of Anesthesia: General and Local MAC Anesthesiologist: Cole Perez Estimated Blood Loss (mL): Minimal Fluids Replaced: Crystalloid Description of Procedure: Surgeon: Darryl Obrien MD, FACOG Indication: 35 year old patient with incomplete AB at 9 weeks gestation with a 7 week twin IUP without FHTs. Pt has been counseled regarding the risks, benefits, and alternatives of this procedure and all questions were answered. Procedure: Patient was taken to the operating room where she was given IV sedation. The patient was prepped and draped in the usual sterile fashion. The anterior cervix was grasped with a tenaculum and cervix was dilated. An 10 mm suction curette was inserted into the cervix and all contents removed. Uterus was gently curetted and remaining tissue was removed by reinserting the suction curette. Some bleeding was noted from the cervix due to tenaculum placement and this was oversewn with 2 [id number] 0 Vicryl suture with hemostasis noted. The patient tolerated the procedure well and was taken to the recovery room in satisfactory condition. Sponge, instruments and needle counts were all correct. There were no apparent complications of the surgery. Grafts/Implants Used: None Complications None Admit VTE Documentation VTE Present on Admission: Yes VTE Mechan Device Prophylaxis: SCD's
--- NOTE | 2021-05-08 10:50 | PCM.DC ---
Discharge Instructions Diet Discharge Diet: No restrictions Activity Discharge Activity: Return to Normal Activity, May Shower and May Take a Tub Bath May resume sexual activity in: 1-2 weeks Additional Activity Instructions:: Nothing in vagina for 1 to 2 weeks. Okay the use ibuprofen or Tylenol per package directions for any cramping you may have over the next few days. Dressing / Incision Call your doctor if you observe: Fever of 101 or Higher, Inability to urinate and Inability to have a bowel movement Follow Up Care Please Follow Up With: Darryl Obrien MD When: 2 to 3 weeks Test Results: Test results from this visit will be discussed in further detail at your follow-up appointment, if applicable. Discharge Plan Admission Primary Reason for Your Visit: Dilation and Evacuation Attending Provider: Darryl Obrien Primary Care Provider: Marcel Garcia Discharge Orders/Prescriptions Prescriptions: No Action Prenatabs FA 1 tab PO DAILY RF: 0 Referrals / Follow Up: Marcel Garcia MD [Primary Care Provider] - Disposition Disposition (needs filled in before D/C Order can be placed): Home, Self Care
[2021-05-08 11:02] LABS: Partial Thromboplast Time 26.5 Seconds (24.1-36.2); Prothrombin Time (Protime)PT. 12.1 SECONDS (11.7-14.9)
[2021-05-08] MEDS: Acetaminophen 500 MG Tablet 1000 MG PO (12:29)
== END 2021-05-08 23:59 | disposition home or self-care (01) ==
LOC: SDC 10:05 → AC 10:05
PROVIDERS: PCP Family Medicine; Referring Provider Obstetrics & Gynecology; Visit Provider Obstetrics & Gynecology
PROC: (CPT 59812; principal; 2021-05-08 10:15)
DX: O03.4 Incomplete spontaneous abortion without complication (principal); Z3A.09 9 weeks gestation of pregnancy; O09.521 Supervision of elderly multigravida, first trimester; Z87.891 Personal history of nicotine dependence; J45.909 Unspecified asthma, uncomplicated
CPT/HCPCS: 59812; 01965; 85027; 85610; 85730; 86850; 86900; 86901; 88305; J7120

== ENCOUNTER → 2021-11-01 | Outpatient (CLI) | payer MEDICAID, SELFPAY ==
[2021-11-07 14:03] LABS: HPV Reflexed? NOT INDICATED
== END | disposition home or self-care (01) ==
LOC: LABSPEC 13:51
PROVIDERS: PCP Family Medicine; Visit Provider Obstetrics & Gynecology
DX: Z12.4 Encounter for screening for malignant neoplasm of cervix (principal)
CPT/HCPCS: 88175; G0145